=== PATIENT | female | born 1960 | race Caucasian/White ===

== ENCOUNTER → 2017-07-16 | Outpatient (CLI) | payer MEDICARE ==
[2017-07-16 14:34] VITALS: BP 148/94; PULSE 88; RESP 20; TEMP 97.8; BMI 31.7
--- NOTE | 2017-07-16 15:14 | P.HPBAR ---
Bariatric H&P - History & Physicial H&P Date: 07/16/17 History & Physicial: Visit/CC: fill Patient initial contact: Initial weight: 78.653 kg Initial weight in pounds: 173.40 Height: 5 ft 5.25 in Initial BMI: 28.6 Last weight: Current weight: 87.18 kg Current weight in pounds: 192.20 Current BMI: 31.7 [place] body weight (based on NIH guidelines): 57.266 kg Excess body weight loss: The patient is a 56 year-old F who presents for Bariatric Assessment. The patient presents today for LAP-BAND adjustment. She currently is hungry and is requesting a fill of her band. Past Medical History History of Any Multi-Drug Resistant Organisms: None Reported Smoking Status: Never smoker Surgical - Exam Vital Signs Temp Pulse Resp BP 97.8 F 88 20 148/94 07/16/17 14:28 07/16/17 14:28 07/16/17 14:28 07/16/17 14:28 - General well developed, no distress - Eyes PERRL - Abdomen Abdomen: soft, non tender Bariatric Assessment & Plan Plan: 's lap band was adjusted. She had 0.5 mL added to her band. She is 1.5 mL in the band. She was able require without difficulty. She'll follow-up in one month. Bariatric Checklist Checklist: Plan: Checklist: EGD: 1. Hiatal hernia: 2. H. Pylori: HgbA1c: Vitamin D: Smoking: Never smoker Primary care physician referral: Dr Valadez Psychiatry clearance: Cardiology clearance: Sleep study: Diet journal: VTE risk score: VTE risk level: Rehab needs at discharge:
== END | disposition home or self-care (01) ==
LOC: BARWHC3 13:48
PROVIDERS: ATTEND Surgery
DX: Z48.815 Encounter for surgical aftercare following surgery on the digestive system (principal); Z98.84 Bariatric surgery status
CPT/HCPCS: 99202

== ENCOUNTER → 2017-09-18 | Outpatient (CLI) | payer MEDICARE ==
[2017-09-18 13:48] VITALS: BP 143/86; PULSE 85; RESP 16; TEMP 97.9; BMI 29.4
--- NOTE | 2017-09-18 17:11 | P.BASOAP ---
Subjective Progress Note Date: 09/18/17 Principal diagnosis: Morbid obesity Patient seen today requesting a lap band adjustment. She was seen by Dr. Dubon in July. At that time she went from 1-1.5 mL. She believes she is too tight at this time with occasional episodes of vomiting particularly with solid foods. She would like 0.25 mL removed. No abdominal pain. Objective - Vital Signs Vital signs: Vital Signs Temp 97.9 F 09/18/17 13:45 Pulse 85 09/18/17 13:45 Resp 16 09/18/17 13:45 BP 143/86 09/18/17 13:45 Pulse Ox Intake & Output 09/17/17 09/18/17 09/18/17 18:59 06:59 18:59 Weight 80.739 kg - Exam Abdomen: Soft, nontender, nondistended Assessment/Plan (1) Morbid obesity due to excess calories Narrative/Plan: Will proceed with LAP-BAND adjustment at this time.The patient's lap band port was palpated. The site was aseptically prepped. The Smith needle was advanced into the port. Aspiration took place. A total of 0.25 ml of fluid was removed. Pressure was held and a sterile dressing was applied. Plan: Date: 09/18/17 Initial Weight: 78.653 kg Initial BMI: 28.6 Current Weight: 80.739 kg Current BMI: 29.4 Type of Surgery: Total Volume in Band: 1.25 Previous Volume: 1.5 Volume Removed: 0.25 Volume Added: Band Size:
== END | disposition home or self-care (01) ==
LOC: BARWHC3 13:17
PROVIDERS: ATTEND Surgery
DX: Z46.51 Encounter for fitting and adjustment of gastric lap band (principal); K91.0 Vomiting following gastrointestinal surgery; K95.09 Other complications of gastric band procedure; E66.01 Morbid (severe) obesity due to excess calories; Z68.29 Body mass index [BMI] 29.0-29.9, adult; Z98.84 Bariatric surgery status
CPT/HCPCS: 99212

== ENCOUNTER → 2021-05-30 | Outpatient (CLI) | payer MEDICARE, BC ==
[2021-05-30 14:19] VITALS: BP 153/100; PULSE 102; RESP 16; TEMP 97.4; BMI 34.2
--- NOTE | 2021-05-30 15:25 | P.HPBAR ---
Bariatric H&P - History & Physicial H&P Date: 05/30/21 History & Physicial: Visit/CC: lap band f/u Patient initial contact: Initial weight: 78.653 kg Initial weight in pounds: 173.40 Height: 5 ft 5.25 in Initial BMI: 28.6 Last weight: Current weight: 93.894 kg Current weight in pounds: 207.00 Current BMI: 34.2 [place] body weight (based on NIH guidelines): 57.266 kg Excess body weight loss: The patient is a 60 year-old F who presents for Bariatric Assessment. Patient presents today for bariatric follow-up. She is requesting a fill of her band. She currently feels hungry. Past Medical History Past Medical History: Hypertension, Osteoarthritis (OA) Additional Past Medical History / Comment(s): bronchitis History of Any Multi-Drug Resistant Organisms: None Reported Past Surgical History: Back Surgery, Bariatric Surgery Additional Past Surgical History / Comment(s): neck fusion 2013, lower back surgery 2017, spinal stimulator 2019, lap band 2001 Past Anesthesia/Blood Transfusion Reactions: Previous Problems w/ Anesthesia, Postoperative Nausea & Vomiting (PONV) Past Psychological History: Bipolar Smoking Status: Never smoker Past Alcohol Use History: None Reported Past Drug Use History: None Reported Surgical - Exam Vital Signs Temp Pulse Resp BP 97.4 F L 102 H 16 153/100 05/30/21 14:15 05/30/21 14:15 05/30/21 14:15 05/30/21 14:15 - General well developed, well nourished, no distress - Abdomen Abdomen: soft, non tender Bariatric Assessment & Plan Plan: Morbid obesity. Patient's LAP-BAND was just proceeded 1.5 mL added to the band. She'll follow-up in 4 weeks. Bariatric Checklist Checklist: Plan: Checklist: EGD: 1. Hiatal hernia: 2. H. Pylori: HgbA1c: Vitamin D: Smoking: Never smoker Primary care physician referral: Dr Valadez Psychiatry clearance: Cardiology clearance: Sleep study: Diet journal: VTE risk score: VTE risk level: Rehab needs at discharge:
== END ==
LOC: BARWHC3 13:54
PROVIDERS: ATTEND Surgery
DX: E66.01 Morbid (severe) obesity due to excess calories (principal); Z46.51 Encounter for fitting and adjustment of gastric lap band; F31.9 Bipolar disorder, unspecified; I10 Essential (primary) hypertension; M19.90 Unspecified osteoarthritis, unspecified site; Z68.34 Body mass index [BMI] 34.0-34.9, adult; Z88.1 Allergy status to other antibiotic agents; Z88.5 Allergy status to narcotic agent; Z88.8 Allergy status to other drugs, medicaments and biological substances
CPT/HCPCS: 99212

== ENCOUNTER → 2021-12-19 | Outpatient (CLI) | payer MEDICARE ==
[2021-12-19 14:20] VITALS: BP 145/86; PULSE 100; RESP 12; TEMP 98.6
[2021-12-19 14:45] VITALS: BMI 37.0
--- NOTE | 2021-12-19 15:09 | P.HPBAR ---
Bariatric H&P - History & Physicial H&P Date: 12/19/21 History & Physicial: Visit/CC: adjustment Patient initial contact: Initial weight: 78.653 kg Initial weight in pounds: 173.40 Height: 5 ft 4 in Initial BMI: 29.7 Last weight: Current weight: 97.976 kg Current weight in pounds: 216.00 Current BMI: 37.0 [place] body weight (based on NIH guidelines): 54.431 kg Excess body weight loss: The patient is a 61 year-old F who presents for Bariatric Assessment. Patient presents today for LAP-BAND adjustment. She is requesting a fill of her band. She is currently hungry. Past Medical History Past Medical History: Hypertension, Osteoarthritis (OA) Additional Past Medical History / Comment(s): bronchitis History of Any Multi-Drug Resistant Organisms: None Reported Past Surgical History: Back Surgery, Bariatric Surgery Additional Past Surgical History / Comment(s): neck fusion 2013, lower back surgery 2017, spinal stimulator 2019, lap band 2001 Past Anesthesia/Blood Transfusion Reactions: Previous Problems w/ Anesthesia, Postoperative Nausea & Vomiting (PONV) Smoking Status: Never smoker Surgical - Exam Vital Signs Temp Pulse Resp BP 98.6 F 100 12 145/86 12/19/21 14:14 12/19/21 14:14 12/19/21 14:14 12/19/21 14:14 - General well developed, well nourished, no distress - Eyes PERRL - ENT normal pinna - Neck no masses - Respiratory normal expansion - Cardiovascular Rhythm: regular - Abdomen Abdomen: soft Hernia: none Bariatric Assessment & Plan Plan: Patient's LAP-BAND was adjusted. She'll 0.5 mL added the band. She currently has 2 mL in the band. She'll follow-up in 4 weeks. Bariatric Checklist Checklist: Plan: Checklist: EGD: 1. Hiatal hernia: 2. H. Pylori: HgbA1c: Vitamin D: Smoking: Never smoker Primary care physician referral: Dr Valadez Psychiatry clearance: Cardiology clearance: Sleep study: Diet journal: VTE risk score: VTE risk level: Rehab needs at discharge:
== END ==
LOC: BARWHC3 13:53
PROVIDERS: ATTEND Surgery
DX: Z09 Encounter for follow-up examination after completed treatment for conditions other than malignant neoplasm (principal); Z98.84 Bariatric surgery status; E66.01 Morbid (severe) obesity due to excess calories; Z68.37 Body mass index [BMI] 37.0-37.9, adult; Z88.5 Allergy status to narcotic agent; Z88.1 Allergy status to other antibiotic agents; Z88.8 Allergy status to other drugs, medicaments and biological substances
CPT/HCPCS: 99212

== ENCOUNTER → 2023-04-30 | Outpatient (CLI) | payer MEDICARE ==
--- NOTE | 2023-04-30 12:12 | P.HPBAR ---
Bariatric H&P - History & Physicial H&P Date: 04/30/23 History & Physicial: Visit/CC: Patient initial contact: Initial weight: 78.653 kg Initial weight in pounds: Height: Initial BMI: Last weight: Current weight: Current weight in pounds: Current BMI: [place] body weight (based on NIH guidelines): Excess body weight loss: The patient is a 62 year-old F who presents for Bariatric Assessment. Patient's with GERD. Patient states that her recent esophagram shows evidence of a hiatal hernia. She's been having some dysphagia. Past Medical History Past Medical History: Hypertension, Osteoarthritis (OA) Additional Past Medical History / Comment(s): bronchitis History of Any Multi-Drug Resistant Organisms: None Reported Past Surgical History: Back Surgery, Bariatric Surgery Additional Past Surgical History / Comment(s): neck fusion 2013, lower back surgery 2017, spinal stimulator 2019, lap band 2001 Past Anesthesia/Blood Transfusion Reactions: Previous Problems w/ Anesthesia, Postoperative Nausea & Vomiting (PONV) Smoking Status: Never smoker Surgical - Exam - General well developed, well nourished, no distress - Eyes PERRL - ENT normal pinna, normal mucosa - Neck no masses - Respiratory normal expansion - Cardiovascular Rhythm: regular - Abdomen Abdomen: soft, non tender Bariatric Assessment & Plan Plan: GERD and dysphagia. Patient LAP-BAND was empty. She'll follow-up in 4 weeks. 2 mL removed. Bariatric Checklist Checklist: Plan: Checklist: EGD: 1. Hiatal hernia: 2. H. Pylori: HgbA1c: Vitamin D: Smoking: Never smoker Primary care physician referral: Dr Valadez Psychiatry clearance: Cardiology clearance: Sleep study: Diet journal: VTE risk score: VTE risk level: Rehab needs at discharge:
[2023-04-30 12:48] VITALS: BP 146/83; PULSE 84; RESP 13; TEMP 98.7; BMI 32.4
== END ==
LOC: BARWHC3 10:41
PROVIDERS: ATTEND Surgery
DX: K21.9 Gastro-esophageal reflux disease without esophagitis (principal); R13.10 Dysphagia, unspecified; Z98.84 Bariatric surgery status; Z88.1 Allergy status to other antibiotic agents; Z88.3 Allergy status to other anti-infective agents; Z88.5 Allergy status to narcotic agent
CPT/HCPCS: 43999

== ENCOUNTER → 2023-05-28 | Outpatient (CLI) | payer MEDICARE ==
[2023-05-28 12:55] VITALS: BP 142/69; PULSE 60; RESP 14; TEMP 97.4; BMI 32.3
== END ==
LOC: BARWHC3 09:49
PROVIDERS: ATTEND Surgery
DX: E66.01 Morbid (severe) obesity due to excess calories (principal); Z46.51 Encounter for fitting and adjustment of gastric lap band; Z98.84 Bariatric surgery status; Z90.3 Acquired absence of stomach [part of]; Z88.1 Allergy status to other antibiotic agents; Z88.5 Allergy status to narcotic agent; Z88.8 Allergy status to other drugs, medicaments and biological substances; Z68.32 Body mass index [BMI] 32.0-32.9, adult
CPT/HCPCS: 99211

== ENCOUNTER → 2023-06-25 | Outpatient (CLI) | payer MEDICARE ==
[2023-06-25 11:18] VITALS: BP 103/77; PULSE 93; TEMP 97.6; BMI 37.1
--- NOTE | 2023-08-24 08:41 | P.HPBAR ---
Bariatric H&P - History & Physicial H&P Date: 06/25/23 History & Physicial: Visit/CC: Patient initial contact: Initial weight: 78.653 kg Initial weight in pounds: Height: Initial BMI: Last weight: Current weight: Current weight in pounds: Current BMI: [place] body weight (based on NIH guidelines): Excess body weight loss: The patient is a 62 year-old F who presents for Bariatric Assessment. Patient presents today for bariatric follow-up. Patient has had chronic issues with gerd with her Lap-Band. She would like to switch to sleeve gastrectomy. Past Medical History Past Medical History: Hypertension, Osteoarthritis (OA) Additional Past Medical History / Comment(s): bronchitis History of Any Multi-Drug Resistant Organisms: None Reported Past Surgical History: Back Surgery, Bariatric Surgery Additional Past Surgical History / Comment(s): neck fusion 2013, lower back surgery 2017, spinal stimulator 2019, lap band 2001 Past Anesthesia/Blood Transfusion Reactions: Previous Problems w/ Anesthesia, Postoperative Nausea & Vomiting (PONV) Past Psychological History: Bipolar Smoking Status: Never smoker Past Alcohol Use History: None Reported Past Drug Use History: None Reported Surgical - Exam - General well nourished - Abdomen Abdomen: soft, non tender Bariatric Assessment & Plan Plan: Chronic issues the gerd due to Lap-Band. Patient will attempt to be authorized for conversion of sleeve gastrectomy. Bariatric Checklist Checklist: Plan: Checklist: EGD: 1. Hiatal hernia: 2. H. Pylori: HgbA1c: Vitamin D: Smoking: Never smoker Primary care physician referral: Dr Valadez Psychiatry clearance: Cardiology clearance: Sleep study: Diet journal: VTE risk score: VTE risk level: Rehab needs at discharge:
== END ==
LOC: BARWHC3 09:38
PROVIDERS: ATTEND Surgery
DX: E66.01 Morbid (severe) obesity due to excess calories (principal); K21.9 Gastro-esophageal reflux disease without esophagitis; Z88.1 Allergy status to other antibiotic agents; Z88.5 Allergy status to narcotic agent; Z88.8 Allergy status to other drugs, medicaments and biological substances; Z68.37 Body mass index [BMI] 37.0-37.9, adult
CPT/HCPCS: 99211

== ENCOUNTER → 2023-06-25 | Outpatient (CLI) | payer MEDICARE ==
[2023-06-25 15:20] LABS: HCT 38.3 % (37.2-46.3); HGB 12.5 g/dL (12.0-15.0); MCH 29.8 pg (27.0-32.0); MCHC 32.6 g/dL (32.0-37.0); MCV 91.4 FL (80.0-97.0); Mean Platelet Volume 9.6 FL (9.5-12.2); NRBC Per 100 WBC 0 X 10*3/uL (0.00-0.01); Platelet Count 331 X 10*3/uL (140-440); RBC 4.19 X 10*6/uL (4.10-5.20); RDW 13.1 % (11.5-14.5)
[2023-06-25 15:21] LABS: Basophils # (A) 0.06 X 10*3/uL (0.00-0.10); Basophils % (A) 0.7 %; Eosinophils # (A) 0.34 X 10*3/uL (0.04-0.35); Eosinophils % (A) 3.8 %; Lymphocytes # (A) 1.65 X 10*3/uL (0.90-5.00); Lymphocytes % (A) 18.3 %; Monocytes # (A) 0.67 X 10*3/uL (0.20-1.00); Monocytes % (A) 7.4 %; Neutrophils # (A) 6.26 X 10*3/uL (1.80-7.70); Neutrophils % (A) 69.6 %
[2023-06-25 15:43] LABS: ALT 24 U/L (8-44); AST 20 U/L (13-35); Albumin 4.3 g/dL (3.8-4.9); Albumin/Globulin Ratio 1.79 Ratio (1.60-3.17); Alkaline Phosphatase 99 U/L (41-126); BUN/Creat Ratio 18.75 Ratio (12.00-20.00); Calcium 9.3 mg/dL (8.7-10.3); Carbon Dioxide 27.5 mmol/L (21.6-31.8); Chloride 106 mmol/L (96-109); Globulin 2.4 g/dL (1.6-3.3); Glucose 110 mg/dL (70-110); Potassium 4.8 mmol/L (3.5-5.5); Sodium 142 mmol/L (135-145); Total Bilirubin <0.2 mg/dL (0.3-1.2); Total Protein 6.7 g/dL (6.2-8.2)
== END | disposition home or self-care (01) ==
LOC: LABPAT 10:21
PROVIDERS: ATTEND Surgery
DX: Z01.818 Encounter for other preprocedural examination (principal); R94.31 Abnormal electrocardiogram [ECG] [EKG]
CPT/HCPCS: 80053; 85025; 93005

== ENCOUNTER 2023-07-23 10:49 | Day surgery (SDC) | payer MEDICARE ==
[2023-07-19 14:26] VITALS: BMI 31.8
[2023-07-23 11:17] VITALS: RESP 16; TEMP 97.4
[2023-07-23] MEDS: LACTATED RINGERS 1,000 ML IV SCH (11:45)
[2023-07-23] MEDS: IV FLUID CONTINUATION 1,000 ML IV ONE (11:47)
[2023-07-23] MEDS ORDERED: PROPOFOL 10 MG/ML 20 ML VIAL IV ONE (12:17)
--- NOTE | 2023-07-23 12:29 | P.GSHP ---
History of Present Illness H&P Date: 07/23/23 Chief Complaint: GERD this a 62 female With GERD. Patient presents today for EGD. Past Medical History Past Medical History: GERD/Reflux, Hyperlipidemia, Hypertension, Osteoarthritis (OA), Thyroid Disorder Additional Past Medical History / Comment(s): bronchitis History of Any Multi-Drug Resistant Organisms: None Reported Past Surgical History: Back Surgery, Bariatric Surgery, Joint Replacement, Orthopedic Surgery Additional Past Surgical History / Comment(s): neck fusion 2013, lower back surgery 2017, spinal stimulator 2019, lap band 2001, left shoulder arthroscopy. right shoulder surgery, left knee surgery, colonoscopy,egd Past Anesthesia/Blood Transfusion Reactions: Previous Problems w/ Anesthesia, Postoperative Nausea & Vomiting (PONV) Additional Past Anesthesia/Blood Transfusion Reaction / Comment(s): no blood transfusion Smoking Status: Never smoker - Past Family History Father Family Medical History: Deep Vein Thrombosis (DVT) Medications and Allergies Home Medications Medication Instructions Recorded Confirmed Type ALPRAZolam [Xanax] 1 mg PO TID PRN 08/16/15 07/19/23 History Venlafaxine HCl [Effexor XR] 150 mg PO DAILY 08/16/15 07/19/23 History Pantoprazole [Protonix] 40 mg PO DAILY 07/17/17 07/19/23 History amLODIPine BESYLATE [Norvasc] 5 mg PO QAM 07/17/17 07/19/23 History Albuterol Inhaler [Ventolin Hfa 1 puff INHALATION RT-TID 05/09/21 07/19/23 History Inhaler] Ezetimibe [Zetia] 10 mg PO DAILY 05/09/21 07/19/23 History QUEtiapine [SEROquel] 200 mg PO HS 05/09/21 07/23/23 History lamoTRIgine [LaMICtal] 100 mg PO DAILY 12/19/21 07/19/23 History Elderberry Fruit [Elderberry] 350 mg PO DAILY 07/19/23 07/19/23 History Levothyroxine Sodium [Synthroid] 100 mcg PO DAILY 07/19/23 07/19/23 History Magnesium 500 mg PO DAILY 07/19/23 07/19/23 History Metoprolol Succinate (ER) [Toprol 50 mg PO DAILY 07/19/23 07/19/23 History Xl] Multivitamin [Multivitamins Adult 1 tab PO DAILY 07/19/23 07/23/23 History Gummies] [place]-3 Fatty Acids/Fish Oil 1 each PO DAILY 07/19/23 07/19/23 History [[place]-3 Fish Oil 1,200 mg Sfgl] QUEtiapine [SEROquel] 1 tab PO DAILY 07/19/23 07/19/23 History Vitamin D3/Vitamin K2 (Mk4) 1 each PO DAILY 07/19/23 07/19/23 History [Vitamin K2 Plus D3 Tablet] Allergies Allergy/AdvReac Type Severity Reaction Status Date / Time cephalexin [From Keflex] Allergy Rash/Hives Verified 07/23/23 11:08 codeine Allergy Rash/Hives Verified 07/23/23 11:08 erythromycin base AdvReac Mild Unknown Verified 07/23/23 11:08 ondansetron HCl AdvReac Mild Vomiting Verified 07/23/23 11:08 [From Zofran (as hydrochloride)] acetaminophen [From Percocet] AdvReac Hallucinati Verified 07/23/23 11:08 ons oxycodone [From Percocet] AdvReac Hallucinati Verified 07/23/23 11:08 ons Surgical - Exam Vital Signs Temp Pulse Resp BP Pulse Ox 97.4 F L 76 16 162/92 98 07/23/23 11:15 07/23/23 11:15 07/23/23 11:15 07/23/23 11:15 07/23/23 11:15 - General well developed, well nourished, no distress - Eyes PERRL - ENT normal pinna - Neck no masses - Respiratory normal expansion - Cardiovascular Rhythm: regular - Abdomen Abdomen: soft, non tender Assessment and Plan Assessment: GERD. We'll perform EGD.
--- NOTE | 2023-07-23 12:35 | P.OP ---
Date of Procedure: 07/23/23 Preoperative Diagnosis: GERD Postoperative Diagnosis: antral gastritis Mild esophagitis No evidence of sleeve obstruction Procedure(s) Performed: EGD Anesthesia: MAC Surgeon: Car Dubon Pathology: other (antrum, esophagus) Condition: stable Disposition: PACU Description of Procedure: the patient's placed on the endoscopy table in the lateral position. He received IV sedation. The gastroscope placed oropharynx passed in the esophagus into the stomach. Scope was placed through the pylorus. The first and second portion of the duodenum appeared normal. Scope summer back the antrum and this appeared mildly inflamed. A biopsies performed. The scope was brought back through the gastric sleeve. There is no evidence of obstruction. The GE junction was at 40 cm per the distal esophagus inflamed. Biopsies performed. The proximal esophagus appeared normal. Scope withdrawn for patient.
[2023-07-23 13:02] VITALS: BP 125/78; PULSE 70
== END 2023-07-23 13:20 | disposition home or self-care (01) ==
LOC: ORWHC2ENDO 10:49
PROVIDERS: ATTEND Surgery
DX: K21.00 Gastro-esophageal reflux disease with esophagitis, without bleeding (principal); E78.5 Hyperlipidemia, unspecified; I10 Essential (primary) hypertension; M19.90 Unspecified osteoarthritis, unspecified site; Z79.890 Hormone replacement therapy; Z88.1 Allergy status to other antibiotic agents; Z88.5 Allergy status to narcotic agent; Z88.8 Allergy status to other drugs, medicaments and biological substances; Z98.84 Bariatric surgery status
CPT/HCPCS: 88305; 43239; J2704

== ENCOUNTER → 2023-11-12 | Day surgery (SDC) | payer MEDICARE ==
[~2023-11-12] MED LIST: GLYCOPYRROLATE 0.2 MG/ML 2 ML VIAL ONE; KETAMINE HCL IN 0.9 % NACL 50 MG/5 ML SYRINGE ONE; LIDOCAINE 1% (10MG/ML) FOR IV START INTRADERMA PRN; LIDOCAINE 1% INJ 10MG/ML (20 ML MDV) ONE; MIDAZOLAM 2 MG/2 ML VIAL ONE; NEOSTIGMINE 1 MG/ML 10 ML VIAL ONE; ONDANSETRON 4 MG/2 ML VIAL IVP ONE; PHENYLEPHRINE 10 MG/ML VIAL ONE; PROPOFOL 10 MG/ML 20 ML VIAL IV ONE; ROCURONIUM 10 MG/ML (5 ML VIAL) IV ONE; SCOPOLAMINE 1 MG/72 HR PATCH TRANSDERM ONE; SUCCINYLCHOLINE CHLORIDE 200 MG/10 ML VIAL IV ONE; fentaNYL (PF) 50 MCG/ML 2 ML AMP ONE
[2023-11-12] MEDS: DEXAMETHASONE SOD PHOSPHATE 4 MG/ML 1 ML VIAL IV ONE (07:13)
[2023-11-12] MEDS: LACTATED RINGERS 1,000 ML IV SCH (07:13)
[2023-11-12] MEDS: IV FLUID CONTINUATION 1,000 ML IV ONE ×2 (07:18→08:38)
[2023-11-12] MEDS: LIDOCAINE 1%-EPI 1:100,000 20 ML VIAL SQ ONE ×2 (07:37→08:15)
[2023-11-12] MEDS: HEPARIN SODIUM,PORCINE 5,000 UNIT/ML 1 ML VIAL SQ STA (07:47)
--- NOTE | 2023-11-12 08:51 | P.OP ---
Date of Procedure: 11/12/23 Preoperative Diagnosis: GERD, dysphagia Postoperative Diagnosis: Gerd, dysphagia Procedure(s) Performed: Laparoscopic movable Lap-Band system Anesthesia: SHAYLA Surgeon: Car Dubon Estimated Blood Loss (ml): 5 Pathology: none sent Condition: stable Disposition: PACU Description of Procedure: The patient was placed on the operative table in supine position. She received general endotracheal anesthesia. Patient was then placed in dorsolithotomy position. Her abdomen is prepped draped you sterile fashion. The skin incision sites were anesthetized 1% local Xylocaine. The skin was incised at the port site the blunt sharp dissection with the cautery the Lap-Band port was dissected free. The PEG tube was then cut and the port was withdrawn. Next using a 5 mm trocar under direct vision the peritoneal cavity entered. After adequate insufflation a 5 mm trocars placed in the right and left lateral position and a another 5 mm trocar was placed in the left epigastric position. The original 5 mm trocar was exchanged for a 15 mm trocar. The liver was retracted off of the Lap-Band. Adhesions the Lap-Band device were then lysed using electrocautery. The Lap-Band buckle was then cut. Of the Lap-Band device was then withdrawn from the stomach. Care was taken identified preserve the gastric wall. The Lap-Band device was then withdrawn through the 15 mm trocar site. There is no bleeding seen. The 15 mm trocar was closed. And then the fascia was closed with a Timoteo Bedolla suture passer and 0 Vicryl suture. This the abdomen inspected once again there is no bleeding seen. The trocars were withdrawn. Skin was closed with interrupted 3-0 Monocryl suture. Dermabond dressing applied. Patient tolerated well. She was sent to recovery room in stable condition.
--- NOTE | 2023-11-12 08:56 | P.GSHP ---
History of Present Illness H&P Date: 11/12/23 Chief Complaint: Dysphagia, GERD This a 63-year-old female who has had issues with dysphagia gerd related to her Lap-Band. Patient presents today for Lap-Band removal. Past Medical History Past Medical History: GERD/Reflux, Hyperlipidemia, Hypertension, Osteoarthritis (OA), Thyroid Disorder Additional Past Medical History / Comment(s): past hx. bronchitis History of Any Multi-Drug Resistant Organisms: None Reported Past Surgical History: Back Surgery, Bariatric Surgery, Joint Replacement, Orthopedic Surgery Additional Past Surgical History / Comment(s): neck fusion 2013, lower back surgery 2017, spinal stimulator 2019, lap band 2001, left shoulder replaced. right shoulder surgery, left knee surgery, colonoscopy,egd Past Anesthesia/Blood Transfusion Reactions: No Reported Reaction, Postoperative Nausea & Vomiting (PONV) Additional Past Anesthesia/Blood Transfusion Reaction / Comment(s): no blood transfusion Smoking Status: Never smoker - Past Family History Father Family Medical History: Deep Vein Thrombosis (DVT) Medications and Allergies Home Medications Medication Instructions Recorded Confirmed Type ALPRAZolam [Xanax] 1 mg PO BID 08/16/15 11/08/23 History Venlafaxine HCl [Effexor XR] 150 mg PO DAILY 08/16/15 11/08/23 History Ezetimibe [Zetia] 10 mg PO DAILY 05/09/21 11/08/23 History QUEtiapine [SEROquel] 200 mg PO HS 05/09/21 11/08/23 History lamoTRIgine [LaMICtal] 100 mg PO DAILY 12/19/21 11/08/23 History Elderberry Fruit [Elderberry] 350 mg PO DAILY 07/19/23 11/08/23 History Levothyroxine Sodium [Synthroid] 100 mcg PO DAILY 07/19/23 11/08/23 History Magnesium 500 mg PO DAILY 07/19/23 11/08/23 History Metoprolol Succinate (ER) [Toprol 50 mg PO DAILY 07/19/23 11/08/23 History Xl] Multivitamin [Multivitamins Adult 1 tab PO DAILY 07/19/23 11/08/23 History Gummies] [place]-3 Fatty Acids/Fish Oil 1 each PO DAILY 07/19/23 11/08/23 History [[place]-3 Fish Oil 1,200 mg Sfgl] QUEtiapine [SEROquel] 100 mg PO QAM 07/19/23 11/08/23 History Vitamin D3/Vitamin K2 (Mk4) 1 each PO DAILY 07/19/23 11/08/23 History [Vitamin K2 Plus D3 Tablet] Biotin 5 mg PO DAILY 11/09/23 11/09/23 History Quercetin 500 mg PO DAILY 11/09/23 11/09/23 History Docusate [Colace] 100 mg PO BID #20 capsule 11/12/23 Rx Ibuprofen [Motrin] 600 mg PO Q6HR PRN #40 tab 11/12/23 Rx oxyCODONE HCL [OxyIR] 5 mg PO Q6H PRN 3 Days #10 tab 11/12/23 Rx Allergies Allergy/AdvReac Type Severity Reaction Status Date / Time cephalexin [From Keflex] Allergy Rash/Hives Verified 11/12/23 06:54 codeine Allergy Rash/Hives Verified 11/12/23 06:54 erythromycin base AdvReac Mild Unknown Verified 11/12/23 06:54 ondansetron HCl AdvReac Mild Vomiting Verified 11/12/23 06:54 [From Zofran (as hydrochloride)] acetaminophen [From Percocet] AdvReac Hallucinati Verified 11/12/23 06:54 ons oxycodone [From Percocet] AdvReac Hallucinati Verified 11/12/23 06:54 ons Surgical - Exam Vital Signs Temp Pulse Resp BP Pulse Ox 97.3 F L 71 16 171/91 99 11/12/23 06:55 11/12/23 06:55 11/12/23 06:55 11/12/23 06:55 11/12/23 06:55 - General well developed, well nourished, no distress - Eyes PERRL - ENT normal pinna - Neck no masses - Respiratory normal expansion - Cardiovascular Rhythm: regular - Abdomen Abdomen: soft, non tender Assessment and Plan Assessment: GERD, dysphagia. Will perform removal of Lap-Band system.
[2023-11-12 08:58] VITALS: TEMP 97.2
[2023-11-12] MEDS: HYDROmorphone 0.5 MG/0.5 ML SYRINGE IVP PRN (09:06)
[2023-11-12] MEDS: KETOROLAC 15 MG/ML 1 ML VIAL IVP STA (09:26)
[2023-11-12] MEDS: droPERidol 5 MG/2 ML VIAL IVP PRN (09:43)
[2023-11-12 12:57] VITALS: BP 152/83; PULSE 85; RESP 18
== END | disposition home or self-care (01) ==
LOC: OR 06:05
PROVIDERS: ATTEND Surgery
DX: E66.01 Morbid (severe) obesity due to excess calories

== ENCOUNTER → 2023-12-10 | Outpatient (CLI) | payer MEDICARE ==
[2023-12-10 11:00] VITALS: BP 140/92; PULSE 79; RESP 16; TEMP 98.1; BMI 32.1
--- NOTE | 2023-12-10 14:00 | P.HPBAR ---
Bariatric H&P - History & Physicial H&P Date: 12/10/23 History & Physicial: Visit/CC: f/u Patient initial contact: Initial weight: 78.653 kg Initial weight in pounds: 173.40 Height: 5 ft 5 in Initial BMI: 28.8 Last weight: Current weight: 87.543 kg Current weight in pounds: 193.00 Current BMI: 32.1 [place] body weight (based on NIH guidelines): 56.699 kg Excess body weight loss: The patient is a 63 year-old F who presents for Bariatric Assessment. Patient presents today for bariatric follow-up. Patient and her Lap-Band removed recently. She has no complaints of pain. Past Medical History Past Medical History: GERD/Reflux, Hyperlipidemia, Hypertension, Osteoarthritis (OA), Thyroid Disorder Additional Past Medical History / Comment(s): past hx. bronchitis History of Any Multi-Drug Resistant Organisms: None Reported Past Surgical History: Back Surgery, Bariatric Surgery, Joint Replacement, Orthopedic Surgery Additional Past Surgical History / Comment(s): neck fusion 2013, lower back surgery 2017, spinal stimulator 2019, lap band 2001, left shoulder replaced. right shoulder surgery, left knee surgery, colonoscopy,egd. Lap band removal 11-12-23 Past Anesthesia/Blood Transfusion Reactions: No Reported Reaction, Postoperative Nausea & Vomiting (PONV) Additional Past Anesthesia/Blood Transfusion Reaction / Comm: no blood transfusion Smoking Status: Never smoker - Past Family History Father Family Medical History: Deep Vein Thrombosis (DVT) Surgical - Exam Vital Signs Temp Pulse Resp BP 98.1 F 79 16 140/92 12/10/23 10:45 12/10/23 10:45 12/10/23 10:45 12/10/23 10:45 - General well developed, well nourished, no distress - Eyes PERRL - ENT normal pinna - Neck no masses - Respiratory normal expansion - Cardiovascular Rhythm: regular - Abdomen Abdomen: soft, non tender Bariatric Assessment & Plan Plan: Status post lap band removal. Patient will follow-up as needed. Bariatric Checklist Checklist: Plan: Checklist: EGD: 1. Hiatal hernia: 2. H. Pylori: HgbA1c: Vitamin D: Smoking: Never smoker Primary care physician referral: Carlton Dela Cruz Psychiatry clearance: Cardiology clearance: Sleep study: Diet journal: VTE risk score: VTE risk level: Rehab needs at discharge:
== END ==
LOC: BARWHC3 10:31
PROVIDERS: ATTEND Surgery
DX: Z46.51 Encounter for fitting and adjustment of gastric lap band (principal); E66.01 Morbid (severe) obesity due to excess calories; Z98.84 Bariatric surgery status; Z68.32 Body mass index [BMI] 32.0-32.9, adult; Z88.1 Allergy status to other antibiotic agents; Z88.5 Allergy status to narcotic agent; Z88.8 Allergy status to other drugs, medicaments and biological substances; Z91.048 Other nonmedicinal substance allergy status
CPT/HCPCS: 99211

== ENCOUNTER → 2024-06-02 | Outpatient (CLI) | payer MEDICARE ==
[2024-06-02 10:55] VITALS: BP 148/87; PULSE 99; RESP 16; TEMP 98.1; BMI 42.6
--- NOTE | 2024-06-02 17:16 | P.HPBAR ---
Bariatric H&P - History & Physicial H&P Date: 06/02/24 History & Physicial: Visit/CC: f/u Patient initial contact: Initial weight: 78.653 kg Initial weight in pounds: 173.40 Height: 5 ft 2 in Initial BMI: 31.7 Last weight: Current weight: 105.687 kg Current weight in pounds: 233.00 Current BMI: 42.6 [place] body weight (based on NIH guidelines): 50 kg Excess body weight loss: The patient is a 63 year-old F who presents for Bariatric Assessment. This is a 63-year-old female who had her Lap-Band removed previously. Patient has gained approximately 65 pounds since her band was removed. Her current BMI is 43. Patient is wishing to undergo sleeve gastrectomy. Past Medical History Past Medical History: GERD/Reflux, Hyperlipidemia, Hypertension, Osteoarthritis (OA), Thyroid Disorder Additional Past Medical History / Comment(s): past hx. bronchitis History of Any Multi-Drug Resistant Organisms: None Reported Past Surgical History: Back Surgery, Bariatric Surgery, Joint Replacement, Orthopedic Surgery Additional Past Surgical History / Comment(s): neck fusion 2013, lower back surgery 2017, spinal stimulator 2019, lap band 2001, left shoulder replaced. right shoulder surgery, left knee surgery, colonoscopy,egd. Lap band removal 11-12-23 Past Anesthesia/Blood Transfusion Reactions: No Reported Reaction, Postoperative Nausea & Vomiting (PONV) Additional Past Anesthesia/Blood Transfusion Reaction / Comm: no blood transfusion Past Psychological History: Bipolar Smoking Status: Never smoker Past Alcohol Use History: None Reported Past Drug Use History: None Reported - Past Family History Father Family Medical History: Deep Vein Thrombosis (DVT) Surgical - Exam Vital Signs Temp Pulse Resp BP 98.1 F 99 16 148/87 06/02/24 10:50 06/02/24 10:50 06/02/24 10:50 06/02/24 10:50 - General well developed, well nourished, no distress - Eyes PERRL - ENT normal pinna - Neck no masses - Respiratory normal expansion - Cardiovascular Rhythm: regular - Abdomen Abdomen: soft, non tender Bariatric Assessment & Plan Plan: Worsening morbid obese. Patient will undergo EGD. We will attempt to obtain insurance authorization for sleeve gastrectomy. Bariatric Checklist Checklist: Plan: Checklist: EGD: 1. Hiatal hernia: 2. H. Pylori: HgbA1c: Vitamin D: Smoking: Never smoker Primary care physician referral: Carlton Dela Cruz Psychiatry clearance: Cardiology clearance: Sleep study: Diet journal: VTE risk score: VTE risk level: Rehab needs at discharge:
== END ==
LOC: BARWHC3 10:22
PROVIDERS: ATTEND Surgery
DX: E66.01 Morbid (severe) obesity due to excess calories (principal); K21.9 Gastro-esophageal reflux disease without esophagitis; Z98.84 Bariatric surgery status; Z68.41 Body mass index [BMI] 40.0-44.9, adult; Z91.048 Other nonmedicinal substance allergy status; Z88.1 Allergy status to other antibiotic agents; Z88.5 Allergy status to narcotic agent; Z88.8 Allergy status to other drugs, medicaments and biological substances
CPT/HCPCS: 99211

== ENCOUNTER 2024-06-16 12:53 | Day surgery (SDC) | payer MEDICARE ==
[2024-06-13 12:21] VITALS: BMI 39.9
[~2024-06-16 12:53] MED LIST changes: -GLYCOPYRROLATE 0.2 MG/ML 2 ML VIAL ONE; -KETAMINE HCL IN 0.9 % NACL 50 MG/5 ML SYRINGE ONE; -LIDOCAINE 1% INJ 10MG/ML (20 ML MDV) ONE; -MIDAZOLAM 2 MG/2 ML VIAL ONE; -NEOSTIGMINE 1 MG/ML 10 ML VIAL ONE; -ONDANSETRON 4 MG/2 ML VIAL IVP ONE; -PHENYLEPHRINE 10 MG/ML VIAL ONE; -PROPOFOL 10 MG/ML 20 ML VIAL IV ONE; -ROCURONIUM 10 MG/ML (5 ML VIAL) IV ONE; -SCOPOLAMINE 1 MG/72 HR PATCH TRANSDERM ONE; -SUCCINYLCHOLINE CHLORIDE 200 MG/10 ML VIAL IV ONE; -fentaNYL (PF) 50 MCG/ML 2 ML AMP ONE
[2024-06-16 14:27] VITALS: TEMP 97.8
[2024-06-16] MEDS: IV FLUID CONTINUATION 1,000 ML IV ONE (14:35)
[2024-06-16] MEDS: LACTATED RINGERS 1,000 ML IV SCH (14:36)
[2024-06-16] MEDS ORDERED: PROPOFOL 10 MG/ML 20 ML VIAL IV ONE (15:12)
[2024-06-16] MEDS ORDERED: LIDOCAINE 1% INJ 10MG/ML (20 ML MDV) ONE (15:12)
--- NOTE | 2024-06-16 15:38 | P.GSHP ---
History of Present Illness H&P Date: 06/16/24 Chief Complaint: GERD is a 63-year-old female who's had issues with GERD. Patient presents today for EGD. She's currently undergoing bariatric workup. Past Medical History Past Medical History: GERD/Reflux, Hyperlipidemia, Hypertension, Osteoarthritis (OA), Thyroid Disorder Additional Past Medical History / Comment(s): Hx bronchitis. History of Any Multi-Drug Resistant Organisms: None Reported Past Surgical History: Back Surgery, Bariatric Surgery, Joint Replacement, Orthopedic Surgery Additional Past Surgical History / Comment(s): Neck fusion 2013, lower back surgery 2017, spinal stimulator 2019, lap band 2001, left shoulder replacement, right shoulder surgery, left knee surgery, colonoscopy, EGD, lap band removal 11-12-23. Past Anesthesia/Blood Transfusion Reactions: Postoperative Nausea & Vomiting (PONV) Additional Past Anesthesia/Blood Transfusion Reaction / Comment(s): No blood transfusion hx. States PONV from Zofran. Smoking Status: Never smoker - Past Family History Father Family Medical History: Deep Vein Thrombosis (DVT) Medications and Allergies Home Medications Medication Instructions Recorded Confirmed Type ALPRAZolam [Xanax] 1 mg PO BID 08/16/15 06/13/24 History Venlafaxine HCl [Effexor XR] 150 mg PO QAM 08/16/15 06/13/24 History Ezetimibe [Zetia] 10 mg PO QAM 05/09/21 06/13/24 History QUEtiapine [SEROquel] 300 mg PO HS 05/09/21 06/16/24 History lamoTRIgine [LaMICtal] 100 mg PO DAILY 12/19/21 06/13/24 History Elderberry Fruit [Elderberry] 350 mg PO DAILY 07/19/23 06/13/24 History Levothyroxine Sodium [Synthroid] 100 mcg PO QAM 07/19/23 06/13/24 History Multivitamin [Multivitamins Adult 1 tab PO DAILY 07/19/23 06/13/24 History Gummies] [place]-3 Fatty Acids/Fish Oil 1 each PO DAILY 07/19/23 06/13/24 History [[place]-3 Fish Oil 1,200 mg Sfgl] Vitamin D3/Vitamin K2 (Mk4) 1 each PO DAILY 07/19/23 06/13/24 History [Vitamin K2 Plus D3 Tablet] Biotin 5 mg PO DAILY 11/09/23 06/13/24 History Quercetin 500 mg PO DAILY 11/09/23 06/13/24 History amLODIPine [Norvasc] 5 mg PO QAM 06/13/24 06/13/24 History Allergies Allergy/AdvReac Type Severity Reaction Status Date / Time adhesive Allergy Rash/Hives Verified 06/16/24 14:14 cephalexin [From Keflex] Allergy Rash/Hives Verified 06/16/24 14:14 codeine Allergy Rash/Hives Verified 06/16/24 14:14 erythromycin base AdvReac Mild Unknown Verified 06/16/24 14:14 ondansetron HCl AdvReac Mild Vomiting Verified 06/16/24 14:14 [From Zofran (as hydrochloride)] oxycodone [From Percocet] AdvReac Hallucinati Verified 06/16/24 14:14 ons Surgical - Exam Vital Signs Temp Pulse Resp BP Pulse Ox 97.8 F 82 18 123/78 94 L 06/16/24 14:23 06/16/24 14:23 06/16/24 14:23 06/16/24 14:23 06/16/24 14:23 - General well developed, well nourished, no distress - Eyes PERRL - ENT normal pinna - Neck no masses - Respiratory normal expansion - Cardiovascular Rhythm: regular - Abdomen Abdomen: soft, non tender Assessment and Plan Assessment: GERD. We'll perform EGD.
--- NOTE | 2024-06-16 15:40 | P.OP ---
Date of Procedure: 06/16/24 Preoperative Diagnosis: GERD Postoperative Diagnosis: antral gastritis Procedure(s) Performed: EGD Anesthesia: MAC Surgeon: Car Dubon Pathology: other (antrum) Condition: stable Disposition: PACU Description of Procedure: patient's placed on the endoscopy table in the lateral position. She received IV sedation. The gastroscope placed oropharynx passed in the esophagus and into the stomach. Scope was placed through the pylorus. The first and second portion of the duodenum appeared normal. The scope was then brought back the antrum this. Mildly inflamed. A biopsies performed. Scope was unretroflexed and remainder the stomach appeared normal. The GE junction was at 40 cm the distal esophagus appeared normal. The proximal esophagus appeared normal. Scope withdrawn for patient.
[2024-06-16 15:55] VITALS: BP 120/83; PULSE 79; RESP 14
== END 2024-06-16 16:08 | disposition home or self-care (01) ==
LOC: ORWHC2ENDO 12:53
PROVIDERS: ATTEND Surgery
DX: K29.50 Unspecified chronic gastritis without bleeding (principal); K21.9 Gastro-esophageal reflux disease without esophagitis; E78.5 Hyperlipidemia, unspecified; I10 Essential (primary) hypertension; Z79.890 Hormone replacement therapy; Z88.5 Allergy status to narcotic agent; Z88.1 Allergy status to other antibiotic agents; Z88.8 Allergy status to other drugs, medicaments and biological substances
CPT/HCPCS: 88305; 43239; J2003; J2704

== ENCOUNTER → 2024-07-21 | Outpatient (CLI) | payer MEDICARE ==
[2024-07-22 08:40] VITALS: BMI 42.7
== END ==
LOC: BARWHC3 12:48
PROVIDERS: ATTEND Surgery
DX: E66.01 Morbid (severe) obesity due to excess calories (principal); Z71.3 Dietary counseling and surveillance; Z91.048 Other nonmedicinal substance allergy status; Z88.5 Allergy status to narcotic agent; Z88.1 Allergy status to other antibiotic agents; Z88.8 Allergy status to other drugs, medicaments and biological substances
CPT/HCPCS: 97804; 99211